=== PATIENT | female | born 1975 | race Asian ===

== ENCOUNTER 2019-06-13 19:07 | Emergency (ER) | payer BC ==
[~2019-06-13] VITALS: Ht 175.3 cm; Wt 100.0 kg
[2019-06-13] MEDS ORDERED: ONDANSETRON HCL 4MG/2ML INJ IV STA (23:24)
[2019-06-13] MEDS ORDERED: SODIUM CHLORIDE 0.9% 1,000 ML IV ONE (23:24)
[2019-06-13] MEDS ORDERED: KETOROLAC 30MG/ML VIAL IV STA (23:24)
[2019-06-14 00:08] LABS: BASOPHILS % 0.3 % (0.0-2.0); EOSINOPHILS % 2.2 % (0.0-5.0); HEMATOCRIT. 33.4 % (36.0-48.0); HEMOGLOBIN. 11.4 g/dL (12.0-16.0); LYMPHOCYTES % 8.7 % (20.0-50.0); MEAN CORPUSCULAR HEMOGLOBIN 26.9 pg (28.0-32.0); MEAN CORPUSCULAR VOLUME 79.1 fL (81.0-99.0); MEAN PLATELET VOLUME 8.2 fl (7.4-10.4); MONOCYTES % 7.6 % (2.0-8.0); NEUTROPHILS % 81.2 % (40.0-76.0); PLATELET 347 x1000/uL (130-400); RED BLOOD CELL COUNT 4.22 mill/uL (4.2-5.4)
[2019-06-14 00:19] LABS: CHLORIDE 99 mEq/L (98-107)
[2019-06-14 01:30] LABS: CLARITY URINE CLEAR (CLEAR); COLOR URINE YELLOW (YELLOW); KETONES URINE NEGATIVE (NEGATIVE); LEUKOCYTE ESTERASE URINE 2+ (NEGATIVE); NITRITE URINE NEGATIVE (NEGATIVE); OCCULT BLOOD URINE TRACE (NEGATIVE); PROTEIN URINE TRACE (NEGATIVE); SPECIFIC GRAVITY URINE 1.015 (1.005-1.030); UROBILINOGEN URINE 0.2 E.U./dL (0.2-1.0)
[2019-06-14 04:40] VITALS: BP 125/81
== END 2019-06-14 04:40 | disposition home or self-care (01) ==
LOC: ER 19:07
DX: N20.0 Calculus of kidney (principal); N83.202 Unspecified ovarian cyst, left side; E11.9 Type 2 diabetes mellitus without complications; E78.00 Pure hypercholesterolemia, unspecified; I10 Essential (primary) hypertension; E03.9 Hypothyroidism, unspecified; M19.90 Unspecified osteoarthritis, unspecified site; Z88.2 Allergy status to sulfonamides; Z91.040 Latex allergy status
CPT/HCPCS: 36415; 74176; 80053; 81003; 81025; 83690; 85025; 87086; 96375; 99285; J1885; J2405; J7030